=== PATIENT | female | born 1955 | race American Indian/Alaskan Native ===

== ENCOUNTER → 2021-01-05 | Day surgery (SDC) | payer MEDICARE, OTHER ==
[~2021-01-05] MED LIST: Acetaminophen 325 MG Tab PO SCH; Acetaminophen/HYDROcodone 325-5 MG Tab PO PRN; Cyclobenzaprine 10 MG Tab PO PRN; Ketorolac 30 MG/ML SDV ONE; Lactated Ringers 1,000 ML IV SCH; Lactated Ringers 1,000 ML ONE; Lidocaine 1% 4 ML ONE; Lidocaine 1%/Sod Bicarbonate in NS 8.4% 1 ML Syringe IDERM PRN; Midazolam 1 MG/ML 2 ML SDV ONE; Morphine 8 MG, EPINEPHrine 0.3 MG, Cefuroxime 750 MG, Sodium Chloride 0.9% 7.9 ML PRN; Ondansetron 4 MG/2 ML SDV ONE; Propofol 200 MG/20 ML SDV ONE; Ropivacaine 0.5% 5 MG/ML 30 ML SDV ONE; Sodium Chloride 0.9% 10 ML Syringe FLUSH PRN; Sodium Chloride 0.9% 250 ML ONE; Vancomycin 1 GM SDV ONE; ceFAZolin 1 GM Vial ONE; ePHEDrine 50 MG/ML SDV ONE; fentaNYL 100 MCG/2 ML SDV ONE
--- NOTE | 2021-01-05 06:39 | PCM.PREANE ---
Preanesthetic Assessment - Anesthesia/Transfusion/Family Hx Anesthesia History: Prior Anesthesia Without Reaction (nausea) Family History of Anesthesia Reaction: No Transfusion History: No Prior Transfusion(s) - Review of Systems General: No Symptoms Pulmonary: No Symptoms Cardiovascular: No Symptoms Gastrointestinal: No Symptoms Neurological: No Symptoms Other: Reports: None - Physical Assessment NPO Status Date: 01/04/21 NPO Status Time: 00:00 Vital Signs: Last Vital Signs Temp 36.6 C 01/05/21 06:15 Pulse 64 01/05/21 06:15 Resp 17 01/05/21 06:15 BP 117/53 L 01/05/21 06:15 Pulse Ox 100 01/05/21 06:15 ASA Class: 2 Mental Status: Alert & Oriented x3 Airway Class: Mallampati = 1 Dentition: Reports: Normal Dentition (front top are capped) Thyro-Mental Finger Breadths: 3 Mouth Opening Finger Breadths: 3 ROM/Head Extension: Limited/Partial Lungs: Clear to Auscultation, Normal Respiratory Effort Cardiovascular: Regular Rate, Regular Rhythm - Imaging/EKG Impressions: EKG SR with 1 degree AV block - Allergies Allergies/Adverse Reactions: Allergies Allergy/AdvReac Type Severity Reaction Status Date / Time buspirone [From BuSpar] Allergy Delusions Verified 01/05/21 06:14 codeine Allergy Nausea and Verified 01/05/21 06:14 Vomiting mirtazapine [From Remeron] Allergy Dizziness Verified 01/05/21 06:14 Opioids - Morphine Analogues Allergy Nausea and Verified 01/05/21 06:14 Vomiting ibuprofen AdvReac Nausea and Verified 01/05/21 06:14 Vomiting - Anesthesia Plan Pre-Op Medication Ordered: None - Acknowledgements Anesthesia Type Planned: Spinal Pt an Appropriate Candidate for the Planned Anesthesia: Yes Alternatives and Risks of Anesthesia Discussed w Pt/Guardian: Yes Pt/Guardian Understands and Agrees with Anesthesia Plan: Yes PreAnesthesia Questionnaire HEENT History: Reports: Allergic Rhinitis, Other (See Below) Other HEENT History: decreased hearing, eustachian tube dysfunction, left labyrinthine unilateral reactive loss, wears glasses Cardiovascular History: Reports: Hypertension Respiratory History: Reports: Asthma, Sleep Apnea Gastrointestinal History: Reports: GERD, Other (See Below) Other Gastrointestinal History: intermittent nausea and vomiting Genitourinary History: Reports: None 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 (See Below) Other OB/BYN History: labial cyst Musculoskeletal History: Reports: Arthritis, Osteoporosis, Other (See Below) Other Musculoskeletal History: restless leg syndrome, muscle strain, rib pain Neurological History: Reports: Vertigo, Other (See Below) Other Neuro History: dizziness, neck pain Psychiatric History: Reports: Anxiety, Bipolar, Depression Endocrine/Metabolic History: Reports: Vitamin D Deficiency Hematologic History: Reports: Other (See Below) Other Hematologic History: hypomagnesia Immunologic History: Reports: None Oncologic (Cancer) History: Reports: None Dermatologic History: Reports: None - Infectious Disease History Infectious Disease History: Reports: None - Past Surgical History Head Surgeries/Procedures: Reports: None Cardiovascular Surgical History: Reports: None Respiratory Surgical History: Reports: None GI Surgical History: Reports: Bariatric Procedure, Cholecystectomy Female Surgical History: Reports: None Male Surgical History: Reports: None Endocrine Surgical History: Reports: None Neurological Surgical History: Reports: None Musculoskeletal Surgical History: Reports: Other (See Below) Other Musculoskeletal Surgeries/Procedures:: foot surgery Oncologic Surgical History: Reports: None Dermatological Surgical History: Reports: None - SUBSTANCE USE Tobacco Use Status *Q: Never Tobacco User Second Hand Smoke Exposure: No Days Per Week of Alcohol Use: 1 Number of Drinks Per Day: 0 Total Drinks Per Week: 0 Recreational Drug Use History: No - HOME MEDS Home Medications: Home Meds Cholecalciferol (Vitamin D3) [Vitamin D3] 5,000 unit PO DAILY 01/04/21 [History] Denosumab [Prolia] 60 mg SQ ASDIRECTED 01/04/21 [History] Pantoprazole Sodium [Protonix] 40 mg PO BID PRN 01/04/21 [History] Prazosin HCl [Prazosin] 2 mg PO BEDTIME 01/04/21 [History] Topiramate 75 mg PO BID 01/04/21 [History] Vortioxetine Hydrobromide [Trintellix] 20 mg PO QAM 01/04/21 [History] buPROPion [Wellbutrin SR] 300 mg PO QAM 01/04/21 [History] hydrOXYzine HCL [Hydroxyzine HCl] 50 mg PO BEDTIME 01/04/21 [History]
--- NOTE | 2021-01-05 08:57 | PCM.POSTAN ---
POST ANESTHESIA ASSESSMENT - MENTAL STATUS Mental Status: Alert, Oriented - VITAL SIGNS Vital Signs: Last Vital Signs Temp 36.6 C 01/05/21 06:15 Pulse 64 01/05/21 06:15 Resp 17 01/05/21 06:15 BP 117/53 L 01/05/21 06:15 Pulse Ox 100 01/05/21 06:15 - RESPIRATORY Respiratory Status: Respiratory Rate WNL, Airway Patent, O2 Saturation Stable - CARDIOVASCULAR CV Status: Pulse Rate WNL, Blood Pressure Stable - GASTROINTESTINAL GI Status: No Symptoms - PAIN Pain Score: 0 - POST OP HYDRATION Hydration Status: Adequate & Stable - OBSERVATIONS Free Text/Narrative:: no anesthesia complications noted
--- NOTE | 2021-01-05 09:16 | PCM.SN.2 ---
- Free Text/Narrative Note: Left selective femoral nerve block at the adductor canal for post-procedure pain control under US guidance requested by Dr. Melendez. Time Out: 906 Start: 906 End: 910 Chart reviewed. Consent signed. Questions answered. Appropriate monitors applied. Time out performed. Left mid-shaft femur identified with ultrasound, scanning medially of femur, the femoral artery in the adductor canal visualized, and the femoral nerve located laterally to the artery. The skin was prepped lateral to the ultrasound probe with chlorahexadine times two. The 21ga 4 insulated block needle was inserted under direct ultrasound guidance into the adductor canal. 25mL of 0.5% ropivacaine with 1:200,000 epinephrine was injected circumferentially around the nerve with intermittent negative aspiration noted. Patient tolerated the procedure well. Sterile technique noted along with sterile gloves, mask, and sterile probe cover. See picture on progress note and vital signs on nurses notes. Block completed in PACU. Surinder Morales CRNA
[2021-01-05] MEDS: fentaNYL 100 MCG/2 ML SDV IVPUSH PRN ×3 (09:25→09:52)
--- NOTE | 2021-01-05 09:53 | CR ---
Left knee: AP and lateral views of the left knee were obtained. Comparison: Previous left knee CT exam of 12/23/20. Findings: Knee prosthesis is seen within the patellofemoral joint. Medial and lateral joint spaces are fairly well-preserved. Soft tissue air is noted. No acute underlying bony abnormality is appreciated. Impression: 1. Patellofemoral prosthesis. 2. No other acute abnormality is seen. Diagnostic code #2
--- NOTE | 2021-01-05 11:02 | PCM.OPNOTE ---
- General Post-Op/Procedure Note Date of Surgery/Procedure: 01/05/21 Operative Procedure(s): left knee patellofemoral arthroplasty Pre Op Diagnosis: left knee osteoarthrosis Post-Op Diagnosis: Same Anesthesia Technique: Local, MAC, Spinal Primary Surgeon: Les Melendez Anesthesia Provider: Surinder Morales [employer] Officer: Luz Maria Tyson [employer] Officer: Betty Shah EBL in mLs: 5 Complications: None Condition: Good Free Text/Narrative:: Intake & Output 01/04/21 01/05/21 01/05/21 22:59 06:59 14:59 Intake Total 700 Balance 700 4 trochlear component 35x10 patella
--- NOTE | 2021-01-05 13:11 | PCM48HPAN ---
Post Anesthesia Note - EVALUATION WITHIN 48HRS OF ANESTHETIC Vital Signs in Normal Range: Yes Patient Participated in Evaluation: Yes Respiratory Function Stable: Yes Airway Patent: Yes Cardiovascular Function Stable: Yes Hydration Status Stable: Yes Pain Control Satisfactory: Yes Nausea and Vomiting Control Satisfactory: Yes Mental Status Recovered: Yes Vital Signs: Last Vital Signs Temp 36.8 C 01/05/21 08:48 Pulse 80 01/05/21 11:30 Resp 16 01/05/21 11:30 BP 136/62 01/05/21 11:30 Pulse Ox 98 01/05/21 11:30
--- NOTE | 2021-01-18 08:20 | OR ---
DATE OF OPERATION: 01/05/2021 SURGEON: Les Melendez MD OPERATION PERFORMED: Left knee patellofemoral arthroplasty. PREOPERATIVE DIAGNOSIS: Left knee osteoarthrosis. POSTOPERATIVE DIAGNOSIS: Left knee osteoarthrosis. ANESTHESIA: Local MAC with spinal. ANESTHESIA PROVIDER: Surinder Morales CRNA ASSISTANTS: Luz Maria Tyson PA-C and Betty Shah LPN ESTIMATED BLOOD LOSS: 5 mL. COMPLICATIONS: None. CONDITION: Stable. DESCRIPTION OF PROCEDURE: The patient was identified in the preoperative holding area. Proper site was marked, identified by the surgeon. The patient was taken back to the operative theater where after adequate anesthesia, the patient's left lower extremity had a nonsterile tourniquet applied and then sterilely prepped and draped in the usual sterile fashion. OR time-out was performed. The patient received 2 grams of IV Ancef. The leg bone was then applied. Left lower extremity was exsanguinated and tourniquet was insufflated to 250 mmHg. Standard anterior incision was made and a medial parapatellar arthrotomy was created, making sure to not disrupt the anterior intermeniscal ligament. At this time, the patella was observed. 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 The lateral compartment showed no chondromalacia changes. The medial compartment did show one small area of grade 2 chondromalacia, but no full-thickness defects, no medial or lateral meniscus tears were noted. At this time, two 4.0 pins were placed extraincisionally on the femur for the [employer] robotic array. Checkpoint was then placed on the femur. Before the surgery, the plan was made for a size 4 trochlear component. The patella was then measured, was measured a 23 and was resected to a 14 for 35 x 10 mm patella. Drill holes were then drilled and found to be in adequate position. At this time, 40 points were then obtained off the femur for the [employer] robotic plan. The size 4 component for the trochlea was found to be the proper size. The plan was adjusted for rotation as well as prominence. At this time, the [employer] Anand robotic arm was brought in and the bur was utilized to finish the plan for the size 4 trochlear component. All bony prominences were removed as well as spurs were burred out. At this time, the drill holes were drilled for the trochlear component and they were all found to be in the proper position. Excess bone was removed as well as any remaining cartilage fragments at the cartilage cut boundary. Trial implant was then placed. The patient's patella was tracking centrally. There were no signs of subluxation or lateral translation and it showed that it was tracking centrally. At this time, cement was mixed on the back table. All cut surfaces were irrigated with pulse lavage irrigation with Ancef and then completely dried. Once the cement was ready, the size 4 trochlear component was impacted into place and cemented in place and it was found to be in proper position with no step-off. Next, the size 35 x 10 mm asymmetric cemented patella was cemented into place. At this time, the patient's knee was brought into full extension. One liter of pulse lavage irrigation with Ancef was irrigated through the knee along with 400 mL Irrisept irrigation. Periarticular injection was completed. Topical tranexamic acid and vancomycin powder were applied. #2 barbed suture was used for closure of the medial parapatellar arthrotomy, 2-0 Vicryl was used as well as Stratafix subcutaneously and Prineo was used for skin closure. The patient was placed in a sterile soft dressing and sent to the PACU in stable condition. SHENG /[id number] MTDPeter
== END | disposition home or self-care (01) ==
LOC: JD.SDS 06:10 → JD.SJHSC 06:10
PROVIDERS: ATTEND Orthopaedic Surgery
DX: M17.12 Unilateral primary osteoarthritis, left knee (principal); M22.42 Chondromalacia patellae, left knee; M25.762 Osteophyte, left knee; J45.909 Unspecified asthma, uncomplicated; M81.0 Age-related osteoporosis without current pathological fracture; I12.9 Hypertensive chronic kidney disease with stage 1 through stage 4 chronic kidney disease, or unspecified chronic kidney disease; N18.9 Chronic kidney disease, unspecified; E55.9 Vitamin D deficiency, unspecified; G47.30 Sleep apnea, unspecified; Z88.8 Allergy status to other drugs, medicaments and biological substances; Z79.899 Other long term (current) drug therapy; Z98.890 Other specified postprocedural states
CPT/HCPCS: 27442; 73560; 97110; 97116; 97161; A9270; C1713; C1776; J0171; J0690; J0697; J1885; J2250; J2270; J2370; J2405; J2704; J2795; J3010; J3370; J7050; J7120; 01400; 64450; 76942